=== PATIENT | female | born 1985 | race Caucasian/White ===

== ENCOUNTER 2017-11-26 20:01 | Inpatient (IN) | payer OTHER ==
[~2017-11-26] VITALS: Ht 170.1 cm; Wt 54.4 kg
[2017-11-26 20:13] VITALS: BP 137/99
[2017-11-26 20:46] LABS: BASO % 0.1 % (0.0-1.0); EOS % 0.3 % (1.0-4.0); HEMATOCRIT 39.9 % (37.0-47.0); HEMOGLOBIN 13.1 g/dl (12.0-16.0); LYMPH # 1.7 10*3/uL (1.3-4.4); LYMPH % 24.1 % (27.0-41.0); MEAN CELL VOLUME 79.3 fl (81.0-99.0); MEAN CORPUSCULAR HGB CONC 32.8 g/dl (33.0-37.0); MEAN PLATELET VOLUME 9.4 fl (9.6-12.3); MONO # 0.4 10*3/uL (0.1-1.0); MONO % 6.2 % (3.0-9.0); NEUT # 4.8 10*3/uL (2.3-7.9); PLATELET COUNT AUTOMATED 294 10*3/uL (130-400); RED BLOOD COUNT 5.03 10*6/uL (4.10-5.10); RED CELL DISTRI WIDTH 14.7 % (0-14.5)
[2017-11-26 21:00] LABS: ALKALINE PHOSPHATASE 103 U/L (45-117); BUN 10 mg/dl (7-24); CHLORIDE 102 mmol/L (98-107); CREATININE 1.06 mg/dL (0.55-1.02); POTASSIUM 3.5 mmol/L (3.5-5.1); SGOT/AST 17 IU/L (3-35); SGPT/ALT 25 U/L (12-78); SODIUM 137 mmol/L (136-145)
[2017-11-26 21:03] LABS: BETA-HCG, QUANT < 1.0 mIU/mL (1-3); ETHYL ALCOHOL < 3.0 mg/dl (<3)
[2017-11-26 21:08] LABS: LIPASE 161 U/L (73-393)
[2017-11-26 21:34] LABS: BILIRUBIN NEGATIVE (NEGATIVE); BLOOD NEGATIVE (NEGATIVE); CLARITY CLEAR (CLEAR); COLOR YELLOW (YELLOW); GLUCOSE NEGATIVE (NEGATIVE); KETONE NEGATIVE (NEGATIVE); LEUKO ESTERASE NEGATIVE (NEGATIVE); NITRITE NEGATIVE (NEGATIVE); UROBILINOGEN 0.2 E.U./dl (0.2-1.0)
[2017-11-26 21:39] LABS: RBC 0-2 rbc/hpf (0-2)
[2017-11-26 21:40] LABS: BACTERIA 1+; EPITHELIAL CELLS 21-30; MUCOUS 1+
[2017-11-26 21:43] LABS: URINE AMPHETAMINES < 1000 (1000ng/ml); URINE BARBITURATES < 200 (200ng/ml); URINE BENZODIAZEPINES < 200 (200ng/ml); URINE CANNABINOIDS (THC) < 50 (50ng/ml); URINE COCAINE < 300 (300ng/ml); URINE METHADONE < 300 (300ng/ml); URINE OPIATES < 300 (300ng/ml)
[2017-11-26 21:45] LABS: URINE PHENCYCLIDINE < 25 (25ng/ml)
[2017-11-26 21:50] VITALS: BP 141/98
[2017-11-27] VITALS: BP 118/76
[2017-11-27 04:00] VITALS: BP 106/68
[2017-11-27 08:00] VITALS: BP 122/89
[2017-11-27 10:36] LABS: URINE AMPHETAMINES < 1000 (1000ng/ml); URINE BARBITURATES < 200 (200ng/ml); URINE BENZODIAZEPINES < 200 (200ng/ml); URINE CANNABINOIDS (THC) < 50 (50ng/ml); URINE COCAINE < 300 (300ng/ml); URINE METHADONE < 300 (300ng/ml); URINE OPIATES < 300 (300ng/ml)
[2017-11-27 10:45] LABS: URINE PHENCYCLIDINE < 25 (25ng/ml)
[2017-11-27 12:00] VITALS: BP 120/78
[2017-11-27 16:00] VITALS: BP 102/72
[2017-11-27 20:00] VITALS: BP 122/83
[2017-11-28] VITALS: BP 95/61
[2017-11-28 08:00] VITALS: BP 101/76
[2017-11-28 12:00] VITALS: BP 90/73
[2017-11-28 16:00] VITALS: BP 108/66
[2017-11-28 20:00] VITALS: BP 105/92
[2017-11-29] VITALS: BP 103/84
[2017-11-29 06:41] LABS: BASO % 0.2 % (0.0-1.0); EOS # 0.1 10*3/uL (0.0-0.4); EOS % 1.5 % (1.0-4.0); HEMATOCRIT 34.9 % (37.0-47.0); HEMOGLOBIN 11.2 g/dl (12.0-16.0); LYMPH % 32.1 % (27.0-41.0); MEAN CELL VOLUME 81.2 fl (81.0-99.0); MEAN CORPUSCULAR HGB CONC 32.1 g/dl (33.0-37.0); MEAN PLATELET VOLUME 9.8 fl (9.6-12.3); MONO # 0.4 10*3/uL (0.1-1.0); MONO % 6.5 % (3.0-9.0); NEUT # 3.7 10*3/uL (2.3-7.9); NEUT % 59.5 % (47.0-73.0); PLATELET COUNT AUTOMATED 213 10*3/uL (130-400); RED CELL DISTRI WIDTH 14.3 % (0-14.5); WHITE BLOOD COUNT 6.2 10*3/uL (4.8-10.8)
[2017-11-29 07:12] LABS: CREATININE 0.97 mg/dL (0.55-1.02)
[2017-11-29 08:00] VITALS: BP 117/64
[2017-11-29 12:00] VITALS: BP 117/73
[2017-11-29 16:00] VITALS: BP 112/70
[2017-11-29 20:00] VITALS: BP 106/59
[2017-11-30] VITALS: BP 95/54
[2017-11-30 08:00] VITALS: BP 92/55
== END 2017-11-30 10:26 | disposition home or self-care (01) | DRG 896 ==
LOC: ED 20:01 → 4E 20:35 → EDHOLD 20:35 → 4E 21:19
PROVIDERS: Hospitalist; Internal Medicine; Nurse Practitioner Family
DX: F11.23 Opioid dependence with withdrawal (principal); N17.0 Acute kidney failure with tubular necrosis; G25.81 Restless legs syndrome; R73.9 Hyperglycemia, unspecified; F41.9 Anxiety disorder, unspecified; G40.909 Epilepsy, unspecified, not intractable, without status epilepticus; F17.210 Nicotine dependence, cigarettes, uncomplicated; R00.0 Tachycardia, unspecified; D64.9 Anemia, unspecified; Z88.8 Allergy status to other drugs, medicaments and biological substances; Z71.6 Tobacco abuse counseling

== ENCOUNTER 2018-01-14 18:16 | Inpatient (IN) | payer OTHER ==
[~2018-01-14] VITALS: Ht 170.1 cm; Wt 59.0 kg
--- NOTE | ~2018-01-14 | CON ---
[place], [place] REPORT OF CONSULTATION NAME: HAKEEM SUNSHINE UNIT #: [id number] ROOM: 427 DOCTOR: LEAH SULLIVAN DMD BIRTHDATE: [birth year] DOS: 01/17/2018 REASON FOR CONSULTATION: Dental abscess. The patient admitted 2 days ago, is currently complaining of a recurrent dental abscess in the lower left quadrant. The patient states having been treated with antibiotics at least 3 times previously with no resolution of symptoms. The patient denies any difficulty swallowing or breathing on exam. Minimal extraoral swelling noted. Intraoral exam: The patient is in generalized poor oral condition, multiple caries and nonrestorable teeth noted. Current issue is on the lower left, no sublingual swelling, submandibular or submental. Small buccal abscess noted around tooth #19. Tooth #20 is caries to the gumline. Discussed treatment options with the patient including root canal therapy and extraction therapy. The patient notified of extensive oral rehabilitation required and that antibiotic therapy is not a definitive treatment for the current issue that she needs to have either root canal or extraction therapy to resolve the infection. The patient is okay for dental discharge. Recommend she find private dentist once discharged. LEAH SULLIVAN DMD CM:CONSTR:REPORT OF CONSULTATION [id number] 01/17/18 1610 interface
[2018-01-14 18:28] VITALS: BP 150/90
[2018-01-14 18:38] LABS: BASO % 0.1 % (0.0-1.0); EOS % 0.3 % (1.0-4.0); HEMATOCRIT 39.1 % (37.0-47.0); HEMOGLOBIN 12.1 g/dl (12.0-16.0); LYMPH # 1.7 10*3/uL (1.3-4.4); LYMPH % 23.9 % (27.0-41.0); MEAN CELL VOLUME 82.1 fl (81.0-99.0); MEAN CORPUSCULAR HGB 25.4 pg (27.0-31.0); MEAN CORPUSCULAR HGB CONC 30.9 g/dl (33.0-37.0); MEAN PLATELET VOLUME 9.5 fl (9.6-12.3); MONO # 0.4 10*3/uL (0.1-1.0); MONO % 5.4 % (3.0-9.0); PLATELET COUNT AUTOMATED 262 10*3/uL (130-400); RED BLOOD COUNT 4.76 10*6/uL (4.10-5.10); RED CELL DISTRI WIDTH 13.6 % (0-14.5); WHITE BLOOD COUNT 7.1 10*3/uL (4.8-10.8)
[2018-01-14 18:53] LABS: ALBUMIN 3.4 gm/dl (3.1-4.5); ALKALINE PHOSPHATASE 99 U/L (45-117); BUN 8 mg/dl (7-24); CHLORIDE 106 mmol/L (98-107); CREATININE 1.29 mg/dL (0.55-1.02); POTASSIUM 3.4 mmol/L (3.5-5.1); SGOT/AST 10 IU/L (3-35); SGPT/ALT 15 U/L (12-78); SODIUM 140 mmol/L (136-145); TOTAL PROTEIN 7.4 gm/dL (6.4-8.2)
[2018-01-14 19:00] LABS: ETHYL ALCOHOL < 3.0 mg/dl (<3)
[2018-01-14 19:01] LABS: THYROID STIM HORMONE (HS) 0.452 uIU/ml (0.358-4.75)
[2018-01-14 19:02] LABS: BILIRUBIN NEGATIVE (NEGATIVE); BLOOD NEGATIVE (NEGATIVE); CLARITY SL CLOUDY (CLEAR); COLOR YELLOW (YELLOW); GLUCOSE NEGATIVE (NEGATIVE); KETONE TRACE (NEGATIVE); LEUKO ESTERASE NEGATIVE (NEGATIVE); NITRITE NEGATIVE (NEGATIVE); SPECIFIC GRAVITY 1.015 (1.005-1.030); UROBILINOGEN 0.2 E.U./dl (0.2-1.0)
[2018-01-14 19:08] LABS: BACTERIA 1+; EPITHELIAL CELLS TNTC
[2018-01-14 19:10] LABS: URINE AMPHETAMINES < 1000 (1000ng/ml); URINE BARBITURATES < 200 (200ng/ml); URINE BENZODIAZEPINES < 200 (200ng/ml); URINE CANNABINOIDS (THC) < 50 (50ng/ml); URINE COCAINE < 300 (300ng/ml); URINE METHADONE < 300 (300ng/ml); URINE OPIATES > 300 (300ng/ml)
[2018-01-14 19:11] LABS: URINE PHENCYCLIDINE < 25 (25ng/ml)
[2018-01-14] MEDS ORDERED: AUGMENTIN 875875 MG PO (19:21)
[2018-01-14 19:45] VITALS: BP 130/81
[2018-01-14 20:00] VITALS: BP 130/85
[2018-01-15] VITALS: BP 95/52
[2018-01-15 04:00] VITALS: BP 104/62
[2018-01-15 07:04] LABS: ALBUMIN 2.8 gm/dl (3.1-4.5); ALKALINE PHOSPHATASE 82 U/L (45-117); BUN 8 mg/dl (7-24); CHLORIDE 108 mmol/L (98-107); CREATININE 0.91 mg/dL (0.55-1.02); POTASSIUM 4.1 mmol/L (3.5-5.1); SGOT/AST 10 IU/L (3-35); SGPT/ALT 11 U/L (12-78); SODIUM 142 mmol/L (136-145); TOTAL PROTEIN 6.1 gm/dL (6.4-8.2)
[2018-01-15 08:00] VITALS: BP 99/66
[2018-01-15 12:00] VITALS: BP 101/67
[2018-01-15 16:00] VITALS: BP 122/81
[2018-01-15 20:00] VITALS: BP 117/77
[2018-01-16] VITALS: BP 98/50
[2018-01-16 08:00] VITALS: BP 92/53
[2018-01-16 12:00] VITALS: BP 94/58
[2018-01-16 16:00] VITALS: BP 132/83
[2018-01-16 20:09] VITALS: BP 122/84
[2018-01-17] VITALS: BP 104/60
[2018-01-17 08:00] VITALS: BP 112/70
[2018-01-17 08:08] LABS: BASO % 0.2 % (0.0-1.0); EOS # 0.1 10*3/uL (0.0-0.4); EOS % 1.4 % (1.0-4.0); HEMOGLOBIN 10.9 g/dl (12.0-16.0); LYMPH # 2.4 10*3/uL (1.3-4.4); LYMPH % 49.5 % (27.0-41.0); MEAN CELL VOLUME 81.4 fl (81.0-99.0); MEAN CORPUSCULAR HGB 25.3 pg (27.0-31.0); MEAN CORPUSCULAR HGB CONC 31.1 g/dl (33.0-37.0); MEAN PLATELET VOLUME 10.2 fl (9.6-12.3); MONO # 0.4 10*3/uL (0.1-1.0); MONO % 8.1 % (3.0-9.0); NEUT % 40.6 % (47.0-73.0); PLATELET COUNT AUTOMATED 229 10*3/uL (130-400); RED CELL DISTRI WIDTH 13.7 % (0-14.5); WHITE BLOOD COUNT 4.9 10*3/uL (4.8-10.8)
[2018-01-17] MEDS ORDERED: METHOCARBAMOL750 M1 PO (08:46)
[2018-01-17] MEDS ORDERED: ATARAX,VISTARIL50 MG PO (08:46)
[2018-01-17] MEDS ORDERED: CLINDAMYCIN HC300 MG PO (08:46)
[2018-01-17 12:00] VITALS: BP 110/68
== END 2018-01-17 15:48 | disposition home or self-care (01) | DRG 896 ==
LOC: ED 18:16 → EDHOLD 18:33 → 4E 18:33
PROVIDERS: Emergency Medicine; Internal Medicine; Internal Medicine Hospice and Palliative Medicine
DX: F11.23 Opioid dependence with withdrawal (principal); N17.0 Acute kidney failure with tubular necrosis; E43 Unspecified severe protein-calorie malnutrition; E87.6 Hypokalemia; K04.7 Periapical abscess without sinus; F32.9 Major depressive disorder, single episode, unspecified; R13.10 Dysphagia, unspecified; D72.810 Lymphocytopenia; F17.200 Nicotine dependence, unspecified, uncomplicated; F15.10 Other stimulant abuse, uncomplicated; R82.71 Bacteriuria; F41.9 Anxiety disorder, unspecified; Z82.49 Family history of ischemic heart disease and other diseases of the circulatory system; Z88.8 Allergy status to other drugs, medicaments and biological substances; Z79.2 Long term (current) use of antibiotics; Z68.20 Body mass index [BMI] 20.0-20.9, adult

== ENCOUNTER 2018-02-21 08:44 | Inpatient (IN) | payer OTHER ==
[~2018-02-21] VITALS: Ht 170.1 cm; Wt 57.0 kg
[~2018-02-21 08:44] MED LIST: ATARAX,VISTARIL50 MG PO; AUGMENTIN 875875 MG PO; CLINDAMYCIN HC300 MG PO; METHOCARBAMOL750 M1 PO
[2018-02-21 08:47] VITALS: BP 140/98
[2018-02-21 09:42] LABS: BILIRUBIN NEGATIVE (NEGATIVE); BLOOD NEGATIVE (NEGATIVE); CLARITY SL CLOUDY (CLEAR); COLOR YELLOW (YELLOW); GLUCOSE NEGATIVE (NEGATIVE); KETONE NEGATIVE (NEGATIVE); LEUKO ESTERASE NEGATIVE (NEGATIVE); NITRITE NEGATIVE (NEGATIVE); SPECIFIC GRAVITY 1.015 (1.005-1.030); UROBILINOGEN 0.2 E.U./dl (0.2-1.0)
[2018-02-21 09:45] LABS: BASO % 0.2 % (0.0-1.0); EOS % 0.3 % (1.0-4.0); HEMATOCRIT 40.2 % (37.0-47.0); HEMOGLOBIN 12.8 g/dl (12.0-16.0); LYMPH # 1.2 10*3/uL (1.3-4.4); LYMPH % 19.7 % (27.0-41.0); MEAN CELL VOLUME 80.9 fl (81.0-99.0); MEAN CORPUSCULAR HGB 25.8 pg (27.0-31.0); MEAN CORPUSCULAR HGB CONC 31.8 g/dl (33.0-37.0); MEAN PLATELET VOLUME 9.3 fl (9.6-12.3); MONO # 0.3 10*3/uL (0.1-1.0); MONO % 4.9 % (3.0-9.0); NEUT # 4.7 10*3/uL (2.3-7.9); NEUT % 74.7 % (47.0-73.0); PLATELET COUNT AUTOMATED 282 10*3/uL (130-400); RED BLOOD COUNT 4.97 10*6/uL (4.10-5.10); RED CELL DISTRI WIDTH 15.4 % (0-14.5); WHITE BLOOD COUNT 6.3 10*3/uL (4.8-10.8)
[2018-02-21 09:50] LABS: URINE AMPHETAMINES < 1000 (1000ng/ml); URINE BARBITURATES < 200 (200ng/ml); URINE BENZODIAZEPINES < 200 (200ng/ml); URINE CANNABINOIDS (THC) < 50 (50ng/ml); URINE COCAINE < 300 (300ng/ml); URINE METHADONE < 300 (300ng/ml); URINE OPIATES > 300 (300ng/ml)
[2018-02-21 09:52] LABS: URINE PHENCYCLIDINE < 25 (25ng/ml)
[2018-02-21 09:56] LABS: BACTERIA TRACE; RBC 0-2 rbc/hpf (0-2); WBC 0-2 wbc/hpf (0-5)
[2018-02-21 10:02] VITALS: BP 130/96
[2018-02-21 10:10] VITALS: BP 130/85
[2018-02-21 10:12] LABS: ALBUMIN 3.6 gm/dl (3.1-4.5); ALKALINE PHOSPHATASE 127 U/L (45-117); BUN 7 mg/dl (7-24); CHLORIDE 107 mmol/L (98-107); POTASSIUM 3.6 mmol/L (3.5-5.1); SGOT/AST 39 IU/L (3-35); SGPT/ALT 58 U/L (12-78); SODIUM 140 mmol/L (136-145)
[2018-02-21] MEDS ORDERED: NYST SUSP PO (10:22)
[2018-02-21 10:25] LABS: ETHYL ALCOHOL < 3.0 mg/dl (<3)
[2018-02-21 10:27] LABS: CREATININE 0.81 mg/dL (0.55-1.02)
[2018-02-21 12:00] VITALS: BP 128/76
[2018-02-21 16:12] VITALS: BP 120/75
[2018-02-21 20:03] VITALS: BP 125/85
[2018-02-22] VITALS: BP 97/63
[2018-02-22 08:00] VITALS: BP 97/58
[2018-02-22 08:25] LABS: ALBUMIN 2.9 gm/dl (3.1-4.5); ALKALINE PHOSPHATASE 111 U/L (45-117); BUN 12 mg/dl (7-24); CHLORIDE 106 mmol/L (98-107); CREATININE 0.95 mg/dL (0.55-1.02); FREE T4 0.92 ng/dl (0.76-1.46); SGOT/AST 36 IU/L (3-35); SGPT/ALT 51 U/L (12-78); SODIUM 142 mmol/L (136-145); TOTAL PROTEIN 6.8 gm/dL (6.4-8.2)
[2018-02-22 12:00] VITALS: BP 114/78
[2018-02-22 16:00] VITALS: BP 108/81
[2018-02-22 20:00] VITALS: BP 115/74
[2018-02-23] VITALS: BP 94/59
[2018-02-23 04:17] LABS: TOTAL PROTEIN, SERUM 6.4 g/dL (6.0-8.5)
[2018-02-23 07:06] LABS: IMMUNOGLOBULIN G, QNT 971 mg/dL (700-1600); IMMUNOGLOBULIN M, QNT 524 mg/dL (26-217)
[2018-02-23 08:00] VITALS: BP 103/61
[2018-02-23 12:00] VITALS: BP 104/73
[2018-02-23] MEDS ORDERED: ZOFRAN4 MG PO (14:17)
[2018-02-23] MEDS ORDERED: ATARAX,VISTARIL50 MG PO (14:17)
[2018-02-23] MEDS ORDERED: ROPINIROLE HYD0.5 MG PO (14:17)
[2018-02-23] MEDS ORDERED: NYST SUSP PO (14:17)
[2018-02-23 16:00] VITALS: BP 129/76
[2018-02-23 20:00] VITALS: BP 121/84
[2018-02-24] VITALS: BP 119/76
[2018-02-25 16:10] LABS: A/G RATIO 0.9 (0.7-1.7); ALBUMIN 3.1 g/dL (2.9-4.4); ALPHA-1-GLOBULIN 0.3 g/dL (0.0-0.4); ALPHA-2-GLOBULIN 0.7 g/dL (0.4-1.0); BETA GLOBULIN 0.9 g/dL (0.7-1.3); GAMMA GLOBULIN 1.4 g/dL (0.4-1.8); GLOBULIN, TOTAL 3.3 g/dL (2.2-3.9); M-SPIKE Not Observed g/dL (Not Observed)
== END 2018-02-24 07:25 | disposition home or self-care (01) | DRG 896 ==
LOC: ED 08:44 → 4E 09:25 → EDHOLD 09:25 → 4E 09:46
PROVIDERS: Emergency Medicine; Internal Medicine; Student in an Organized Health Care Education/Training Program
DX: F11.23 Opioid dependence with withdrawal (principal); E43 Unspecified severe protein-calorie malnutrition; Z68.1 Body mass index [BMI] 19.9 or less, adult; F41.9 Anxiety disorder, unspecified; B19.20 Unspecified viral hepatitis C without hepatic coma; D72.810 Lymphocytopenia; R74.0 Nonspecific elevation of levels of transaminase and lactic acid dehydrogenase [LDH]; F17.210 Nicotine dependence, cigarettes, uncomplicated; G40.909 Epilepsy, unspecified, not intractable, without status epilepticus; F32.9 Major depressive disorder, single episode, unspecified; Z88.8 Allergy status to other drugs, medicaments and biological substances; Z79.2 Long term (current) use of antibiotics; Z79.899 Other long term (current) drug therapy; Z98.891 History of uterine scar from previous surgery; Z72.89 Other problems related to lifestyle; Z82.49 Family history of ischemic heart disease and other diseases of the circulatory system

== ENCOUNTER 2021-06-02 22:27 | Emergency (ER) | payer OTHER ==
[~2021-06-02] VITALS: Ht 172.7 cm; Wt 54.4 kg
[~2021-06-02 22:27] MED LIST changes: +NYST SUSP PO; +ROPINIROLE HYD0.5 MG PO; +ZOFRAN4 MG PO
== END 2021-06-02 23:30 | disposition left against medical advice (07) ==
LOC: ED 22:27
DX: F19.239 Other psychoactive substance dependence with withdrawal, unspecified (principal); Z53.21 Procedure and treatment not carried out due to patient leaving prior to being seen by health care provider